=== PATIENT | female | born 1950 | race Caucasian/White ===

== ENCOUNTER 2018-01-04 12:16 | Day surgery (SDC) | payer MEDICARE, MEDICAID ==
[~2018-01-04 12:16] MED LIST: ACETAMINOPHEN 1,000 MG/100 ML BTL IV ONE; CEFAZOLIN 2 Gram 2 GM/50 ML BAG IVPB ONE
[2018-01-04] MEDS ORDERED: MIDAZOLAM HCL 2MG/2ML VIAL IV ONE (12:17)
[2018-01-04] MEDS ORDERED: ONDANSETRON HCL IV 4 MG/2 ML VIAL IVP ONE (12:17)
[2018-01-04] MEDS ORDERED: BUPIVACAINE 0.5% W/EPI MPF 30 ML VIAL IVP ONE (12:17)
[2018-01-04] MEDS ORDERED: PROPOFOL 10 MG/ML VIAL IV ONE (12:17)
[2018-01-04] MEDS ORDERED: LIDOCAINE 2% MDV (20MG/ML) 20ML VIAL IV ONE (12:17)
[2018-01-04] MEDS ORDERED: FENTANYL PF 100MCG/2ML VIAL IV ONE (12:17)
[2018-01-04] MEDS ORDERED: SEVOFLURANE 250 ML INH ONE (12:17)
[2018-01-04 13:08] LABS: BLOOD UREA NITROGEN 14 mg/dL (8-23); CREATININE 0.8 mg/dL (0.5-0.9); EST GLOMERULAR FILTRATION RATE > 60 mL/min; GLUCOSE,RANDOM 125 mg/dL (74-109)
[2018-01-04 13:21] LABS: BASO % 0.5 % (0-6); EOS % 3.5 % (0-6); GRAN % 58.2 % (47-80); HEMATOCRIT 36.1 % (35.0-47.0); HEMOGLOBIN 11.8 gm/dl (11.6-16.0); LYMPH % 28.2 % (16-45); MEAN CELL VOLUME 85.1 fl (81-97); MEAN CORPUSCULAR HEMOGLOBIN 27.8 pg (27-33); MEAN CORPUSCULAR HGB CONC 32.7 g/dl (32-36); MONO % 9.6 % (0-9); PLATELET COUNT 290 K/uL (130-400); RED BLOOD COUNT 4.24 M/uL (3.80-5.40); RED CELL DISTRIBUTION WIDTH 15.4 % (11.5-14.5)
[2018-01-04] MEDS ORDERED: MORPHINE SULFATE 4 MG/ML VIAL ONE (14:42)
--- NOTE | 2018-01-06 12:50 | Operative Note ---
DATE OF SURGERY: 01/04/2018 PREOPERATIVE DIAGNOSIS: Torn lateral meniscus of the left knee. POSTOPERATIVE DIAGNOSIS: Complex tear involving the posterior lateral horn of lateral meniscus. OPERATION: Left knee arthroscopy with intraarticular debridement and subtotal lateral meniscectomy. Staff Surgeon: Roldan Ha MD Anesthesia: General. Preparation: Chloraprep. Individual Considerations: None. PROCEDURE: The patient was taken to the operating room and placed supine on the operating room table. She had successful induction with general anesthetic. Her left lower extremity was prepped and draped in the usual fashion. The patient had a superolateral inflow cannula placed. Skin was infiltrated with 0.5% Marcaine with epinephrine prior. A blood-tinged effusion was drained. The knee was inflated with normal saline. An inferomedial and an inferolateral lateral portal were made in a similar fashion. The arthroscope was introduced through the inferolateral portal up into the pouch. The patellofemoral compartment was normal. No loose bodies were seen. No significant synovitis. Medial compartment structures were well seen in prone and found to be normal. The cruciates were normal laterally. It appeared that she had a previous partial lateral meniscectomy. She had a new large flap on the posterolateral corner of the posterolateral horn of the lateral meniscus. This was debrided back to stable cartilage with basket forceps and a shaver. Articular cartilage laterally was intact. The knee was then irrigated out with saline to remove loose floating debris. Portals were closed with rosa maria, and 20 mL of 0.5% plain Marcaine along with 4 mg of morphine and 40 mg of Depo-Medrol was injected into the knee. A sterile bulky compressive dressing was applied. The patient tolerated procedures well. Needle and sponge counts were correct. Estimated blood loss was minimal. She was taken back to recovery in good condition. There were no complications. TETE
== END 2018-01-04 16:10 | disposition home or self-care (01) ==
LOC: SUR 12:16
PROVIDERS: ATTEND Orthopaedic Surgery
DX: S83.272A Complex tear of lateral meniscus, current injury, left knee, initial encounter (principal); I48.91 Unspecified atrial fibrillation; Z79.01 Long term (current) use of anticoagulants; E78.00 Pure hypercholesterolemia, unspecified; E11.9 Type 2 diabetes mellitus without complications
CPT/HCPCS: 29881; 01400; 85025; 80048; J2405; J3010; J0690; J2270

== ENCOUNTER 2018-05-19 10:19 | Day surgery (SDC) | payer MEDICARE, MEDICAID ==
[2018-05-19] MEDS ORDERED: KETOROLAC 30 MG/ML VIAL IVP ONE (10:20)
[2018-05-19] MEDS ORDERED: BUPIVACAINE 0.5% W/EPI MPF 30 ML VIAL IVP ONE (10:20)
[2018-05-19] MEDS ORDERED: SEVOFLURANE 250 ML INH ONE (10:20)
[2018-05-19] MEDS ORDERED: PROPOFOL 10 MG/ML VIAL IV ONE (10:20)
[2018-05-19] MEDS ORDERED: METHYLPREDNISOLONE 40MG/VIAL IM ONE (10:20)
[2018-05-19] MEDS ORDERED: LIDOCAINE 2% MDV (20MG/ML) 20ML VIAL IV ONE (10:20)
[2018-05-19 10:43] LABS: BASO % 0.6 % (0-6); EOS % 3.6 % (0-6); GRAN % 50.4 % (47-80); HEMATOCRIT 38.4 % (35.0-47.0); HEMOGLOBIN 12.5 gm/dl (11.6-16.0); LYMPH % 36.2 % (16-45); MEAN CELL VOLUME 83.3 fl (81-97); MEAN CORPUSCULAR HEMOGLOBIN 27.1 pg (27-33); MEAN CORPUSCULAR HGB CONC 32.6 g/dl (32-36); MEAN PLATELET VOLUME 9.9 fl (7.4-10.4); MONO % 9.2 % (0-9); PLATELET COUNT 317 K/uL (130-400); RED BLOOD COUNT 4.61 M/uL (3.80-5.40); RED CELL DISTRIBUTION WIDTH 17.6 % (11.5-14.5); WHITE BLOOD COUNT W/O DIFF 8.9 K/uL (4.2-12.2)
[2018-05-19 10:51] LABS: BLOOD UREA NITROGEN 11 mg/dL (8-23); CREATININE 0.8 mg/dL (0.5-0.9); EST GLOMERULAR FILTRATION RATE > 60 mL/min; GLUCOSE,RANDOM 126 mg/dL (74-109)
--- NOTE | 2018-05-22 06:50 | Operative Note ---
DATE OF SURGERY: 05/19/2018 PREOPERATIVE DIAGNOSIS: Internal derangement of the left knee. POSTOPERATIVE DIAGNOSES: 1. 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 2. Small grade 3 chondromalacia of lateral compartment. 3. Small fringe tear involving the posterior horn of the lateral meniscus. OPERATION: 1. Left knee arthroscopy with partial lateral meniscectomy. 2. Left knee arthroscopy with limited chondroplasty. Staff Surgeon: Roldan Ha MD Anesthesia: General. Preparation: Chloraprep. Individual Considerations: None. PROCEDURE: The patient was taken to the operating room and placed supine on the operating room table. The patient had a successful induction with general anesthetic. The left lower extremity was prepped and draped in the usual fashion. The patient had a superolateral inflow cannula placed. Skin was infiltrated with 0.5% Marcaine with epinephrine prior. The knee was inflated with normal saline. An inferomedial and an inferolateral portal were made in a similar fashion. The arthroscope was introduced through the inferolateral portal up into the pouch. Patellofemoral joint was basically normal. No loose bodies were seen in the pouch or either gutter medially. Medial meniscus was normal. Articular cartilage was normal except there was a small chondral ulcer just lateral to the midline of the femoral condyle near the periphery of the notch measuring about the size of a nickel but not down to bone. The cruciates were normal laterally. Some small grade 3 changes in the tibial plateau and femoral condyle, which was smoothed with a shaver, and a small fringe tear of the meniscus posteriorly but the popliteal tendon was intact. This was trimmed back with basket forceps and a shaver to a stable rim. After irrigation, portals were closed with rosa maria, and 20 mL of 0.5% Marcaine with epinephrine along with 4 mg of morphine and 40 mg of Depo-Medrol were injected into the knee. A sterile bulky compressive dressing was applied. The patient tolerated procedure well. Needle and sponge counts were correct. Estimated blood loss was minimal. She was taken back to recovery in good condition. There were no complications. TETE
== END 2018-05-19 14:40 | disposition home or self-care (01) ==
LOC: SUR 10:19
PROVIDERS: ATTEND Orthopaedic Surgery
DX: S83.282A Other tear of lateral meniscus, current injury, left knee, initial encounter (principal); M94.262 Chondromalacia, left knee; I48.91 Unspecified atrial fibrillation; Z79.01 Long term (current) use of anticoagulants; E11.9 Type 2 diabetes mellitus without complications; J44.9 Chronic obstructive pulmonary disease, unspecified; J45.909 Unspecified asthma, uncomplicated; G47.33 Obstructive sleep apnea (adult) (pediatric)
CPT/HCPCS: 36416; 80048; 82948; 85025; J1030; J1885

== ENCOUNTER 2018-10-11 11:46 | Day surgery (SDC) | payer MEDICAID, MEDICARE ==
[~2018-10-11 11:46] MED LIST changes: -ACETAMINOPHEN 1,000 MG/100 ML BTL IV ONE; +ACETAMINOPHEN 1,000 MG/100 ML BTL IVPB ONE; -CEFAZOLIN 2 Gram 2 GM/50 ML BAG IVPB ONE
[2018-10-11] MEDS ORDERED: PROPOFOL 10 MG/ML VIAL IV ONE (11:47)
[2018-10-11] MEDS ORDERED: KETOROLAC 30 MG/ML VIAL IVP ONE (11:47)
[2018-10-11] MEDS ORDERED: ALFENTANIL HCL 500 MCG/1ML, 2ML AMP IV ONE (11:47)
[2018-10-11] MEDS ORDERED: KETAMINE HCL 100MG/1ML VIAL INJ ONE (11:47)
[2018-10-11] MEDS ORDERED: RINGERS SOLUTION,LACTATED 1,000 ML IV ONE ×2 (12:42)
[2018-10-11] MEDS ORDERED: LIDOCAINE 1% W/EPI 1:200,000 MPF 30ML SQ ONE ×2 (14:16)
--- NOTE | 2018-10-13 11:11 | Operative Note ---
DATE OF SURGERY: 10/11/2018 PREOPERATIVE DIAGNOSIS: Right carpal tunnel syndrome. POSTOPERATIVE DIAGNOSIS: Right carpal tunnel syndrome. OPERATION: Right carpal tunnel release. STAFF SURGEON: Roldan Ha MD ANESTHESIA: Local. PREPARATION: Chloraprep. INDIVIDUAL CONSIDERATIONS: None. PROCEDURE: The patient was taken to the operating room and placed supine on the operating room table. Her right arm was prepped and draped in the usual fashion. She was given IV sedation and then the longitudinal wrist crease was infiltrated with 1% lidocaine with epinephrine. The limb was elevated. Tourniquet was inflated to 250 mmHg. Sharp dissection carried down through skin and subcutaneous tissues. Small veins were coagulated with a Bovie. Sharp dissection carried down through the palmar fascia through the transverse metacarpal fascia distally to the superficial arch and proximally to the antebrachial fascia. Recurrent branch was intact. The carpal tunnel and median nerve showed there was hourglass and reddened and injected and obviously compresses. No tumors were seen. After irrigation, tourniquet was let down and hemostasis was obtained with a Bovie. The skin was then approximated with interrupted 4-0 nylon in a vertical mattress fashion. A sterile bulky compressive hand-type dressing was applied. The patient tolerated procedure well. Needle and sponge counts were correct. Estimated blood loss was minimal. She was taken back to recovery in good condition. There were no complications. TETE
== END 2018-10-11 15:00 | disposition home or self-care (01) ==
LOC: SUR 11:46
PROVIDERS: ATTEND Orthopaedic Surgery
DX: G56.01 Carpal tunnel syndrome, right upper limb (principal); I48.91 Unspecified atrial fibrillation; E78.00 Pure hypercholesterolemia, unspecified; E11.9 Type 2 diabetes mellitus without complications; K58.0 Irritable bowel syndrome with diarrhea
CPT/HCPCS: 64721; 01810; J1885; J3490; J7120